=== PATIENT | male | born 1980 | race Caucasian/White ===

== ENCOUNTER 2024-03-20 07:50 | Outpatient (CLI) | payer OTHER | END 2024-03-20 07:51 | disposition home or self-care (01) | LOC: RT 07:50 | PROVIDERS: ATTEND Nurse Practitioner Family | DX: R93.89 Abnormal findings on diagnostic imaging of other specified body structures (principal); J44.9 Chronic obstructive pulmonary disease, unspecified | CPT/HCPCS: 94010 ==